=== PATIENT | female | born 1975 | race Asian ===

== ENCOUNTER 2018-04-15 12:08 | Outpatient (CLI) | payer BC ==
--- NOTE | 2018-04-15 20:41 | Ultrasound Report ---
Procedure Date: 04/15/2018 Accession Number: [id number] / [id number] Procedure: US - Carotid Doppler Complete CPT Code: FULL RESULT: EXAM: BILATERAL CAROTID AND VERTEBRAL ARTERY DUPLEX DOPPLER ULTRASOUND. EXAM DATE: 04/15/2018 01:29 PM CLINICAL HISTORY: Carotid atherosclerosis. COMPARISON: None. TECHNIQUE: Grayscale imaging, color Doppler, and duplex spectral Doppler were used to evaluate the carotid and vertebral arteries bilaterally. Static images were obtained. FINDINGS: No significant plaque is identified in the right or left common or internal carotid arteries. Normal antegrade flow is present in bilateral vertebral arteries. VELOCITIES (cm/sec): Right: RCCA Prox: PSV 105 cm/sec. RCCA Dist: PSV 99 cm/sec, EDV 39 cm/sec. RECA: PSV 85 cm/sec. R Bulb: PSV 91 cm/sec, EDV 35 cm/sec, ICA/CCA ratio 0.91. CISCO Prox: PSV 102 cm/sec, EDV 41 cm/sec, ICA/CCA ratio 1.03. CISCO Mid: PSV 104 cm/sec, EDV 51 cm/sec, ICA/CCA ratio 1.05. CISCO Dist: PSV 87 cm/sec, EDV 40 cm/sec, ICA/CCA ratio 0.87. RVA: PSV 55 cm/sec. RVA flow direction: Antegrade. Left: LCCA Prox: PSV 105 cm/sec. LCCA Dist: PSV 99 cm/sec, EDV 36 cm/sec. LECA: PSV 80 cm/sec. L Bulb: PSV 83 cm/sec, EDV 31 cm/sec, ICA/CCA ratio 0.83. LICA Prox: PSV 79 cm/sec, EDV 28 cm/sec, ICA/CCA ratio 0.79. LICA Mid: PSV 103 cm/sec, EDV 53 cm/sec, ICA/CCA ratio 1.04. LICA Dist: PSV 107 cm/sec, EDV 48 cm/sec, ICA/CCA ratio 1.08. LVA: PSV 53 cm/sec. LVA flow direction: Antegrade. ICA diameter stenosis: Right: <50% by velocity and <70% by NASCET criteria. Left: <50% by velocity and <70% by NASCET criteria. IMPRESSION: 1. No significant bilateral carotid artery plaquing. 2. In the right carotid artery there are no elevated carotid artery velocities to suggest hemodynamically significant stenosis. 3. In the left carotid artery there are no elevated carotid artery velocities to suggest hemodynamically significant stenosis. 4. Normal antegrade flow is present in bilateral vertebral arteries. General Recommendations: Stenosis =50% ICA - Follow-up ultrasound 6-12 months Stenosis <50% ICA - High Risk Patient with plaque - Follow-up ultrasound 1-2 years Normal Study but High Risk Patient - Follow-up ultrasound 3-5 years Management recommendations and diagnostic criteria are based on current IAC endorsed standards in Carotid Artery Stenosis: Grayscale and Doppler Ultrasound Diagnosis. Validated velocity measurements with angiographic measurements and velocity criteria are extrapolated from diameter data as defined by the Society of Radiologists in Ultrasound Consensus Conference Radiology 2003; 229;340-346. RADIA
== END 2018-04-15 12:09 | disposition home or self-care (01) ==
LOC: DI 12:08
PROVIDERS: ATTEND Nurse Practitioner Gerontology
DX: I65.29 Occlusion and stenosis of unspecified carotid artery (principal)
CPT/HCPCS: 93880

== ENCOUNTER 2019-06-11 08:00 | Outpatient (CLI) | payer SELFPAY ==
[2019-06-11 19:14] LABS: BILIRUBIN,URINE NEGATIVE (NEGATIVE); GLUCOSE, URINE (UA) 100 mg/dL (NEGATIVE); KETONES,URINE (UA) NEGATIVE (NEGATIVE); LEUKOCYTE ESTERASE, URINE SMALL (NEGATIVE); NITRITE,URINE POSITIVE (NEGATIVE); OCCULT BLOOD,URINE TRACE-INTA (NEGATIVE); PROTEIN,URINE 30 mg/dL (NEGATIVE); UROBILINOGEN,URINE 2 E.U./dL (NORMAL)
[2019-06-11 19:25] LABS: CLARITY,URINE HAZY (CLEAR)
[2019-06-11 19:40] LABS: BACTERIA,URINE Moderate /HPF (None Seen); SQUAMOUS EPITHELIAL CELL,UR FEW Squamous (<= Few)
== END 2019-06-11 23:59 | disposition home or self-care (01) ==
LOC: LAB.R 08:00
PROVIDERS: ATTEND Physician Assistant Medical
DX: N10 Acute pyelonephritis (principal)
CPT/HCPCS: 81001; 81003; 87077; 87086; 87181

== ENCOUNTER 2019-08-03 07:55 | Outpatient (CLI) | payer BC ==
--- NOTE | 2019-08-03 14:22 | Ultrasound Report ---
Reason: MULTIPLE THYROID NODULES Procedure Date: 08/03/2019 Accession Number: [id number] / [id number] Procedure: US - Head or Neck Soft Tissue CPT Code: FULL RESULT: EXAM: THYROID ULTRASOUND EXAM DATE: 08/03/2019 09:00 AM. CLINICAL HISTORY: Multiple thyroid nodules. COMPARISON: None. TECHNIQUE: Real time sonographic imaging of the thyroid was performed by the emergency department coordinator. Multiple communications representative static images were saved for review. FINDINGS: THYROID GLAND: Right Lobe: 5.7 x 1.7 x 1.9 cm, volume 9.6 cc. Normal background echotexture. Right Lobe Nodules: 1. Mixed cystic and solid mid to upper lobe 1.4 x 0.9 x 0.9 cm nodule. 2. Upper pole 0.2 x 0.2 x 0.2 cm hypoechoic nodule. Left Lobe: 5.8 x 1.4 x 1.7 cm, volume 7.2 cc. Normal background echotexture. Left Lobe Nodules: 1. Mid to upper lobe 0.4 x 0.3 x 0.3 cm hypoechoic nodule. 2. Mid lobe 0.7 x 0.4 x 0.5 cm hypoechoic nodule. Isthmus: 0.3 cm AP. Isthmic Nodules: None. LYMPH NODES: Single, bilateral nonenlarged benign-appearing lymph nodes demonstrated. OTHER: None. IMPRESSION: Bilateral thyroid nodules, as detailed above. Follow-up ultrasound recommended in 12-24 months, unless clinically indicated sooner. Management recommendations are based on 2015 [place] Thyroid Association Management Guidelines for Adult Patients with Thyroid Nodules and Differentiated Thyroid Cancer. RADIA
== END 2019-08-03 07:56 | disposition home or self-care (01) ==
LOC: DI 07:55
PROVIDERS: ATTEND Nurse Practitioner Gerontology
DX: E04.2 Nontoxic multinodular goiter (principal)
CPT/HCPCS: 76536

== ENCOUNTER 2019-08-03 07:58 | Outpatient (CLI) | payer BC ==
--- NOTE | 2019-08-03 10:48 | Mammography Report ---
Reason: SCREENING MAMMO Procedure Date: 08/03/2019 Accession Number: [id number] / [id number] Procedure: LONNY - Screening Mammo w/Shan CPT Code: FULL RESULT: EXAM: Screening Mammo w/Shan DATE: 08/03/2019 9:21 AM CLINICAL HISTORY: Screening encounter. TECHNIQUE: (B) - Bilateral CC and MLO views were obtained. COMPARISON: 04/28/2015. PARENCHYMAL PATTERN: (A) - The breast(s) demonstrate(s) scattered fibroglandular densities. FINDINGS: There are no suspicious masses, calcifications, or areas of distortion. IMPRESSION: Negative examination. BI-RADS category 1. RECOMMENDATION: (ANNUAL) - Recommend routine annual screening mammography. BI-RADS CATEGORY: (1) - Negative. STANDARD QUALIFYING STATEMENTS: 1. This examination was not reviewed with the aid of Computer-Aided Detection (CAD). 2. A negative or benign imaging report should not preclude biopsy if clinically suspicious findings are present. 3. Dense breasts may obscure an underlying neoplasm. 4. This examination was reviewed with the aid of 3D breast imaging (tomosynthesis).
== END 2019-08-03 07:59 | disposition home or self-care (01) ==
LOC: DI 07:58
DX: Z12.31 Encounter for screening mammogram for malignant neoplasm of breast (principal)
CPT/HCPCS: 77063; 77067

== ENCOUNTER 2019-11-23 13:40 | Outpatient (CLI) | payer BC | END 2019-11-23 23:59 | disposition home or self-care (01) | LOC: LAB.N 13:40 | PROVIDERS: ATTEND Nurse Practitioner Gerontology | DX: R30.0 Dysuria (principal) | CPT/HCPCS: 87077; 87086; 87181 ==

== ENCOUNTER 2020-02-27 20:21 | Emergency (ER) | payer BC ==
--- NOTE | 2020-02-27 21:02 | ED Physician Documentation ---
History of Present Illness - Stated complaint Stated Complaint: L LEG PAIN - Chief complaint Chief Complaint: Ext Problem - Additonal information Additional information: This is a 44-year-old female with a history of DVT age 16 provoked by oral contraceptives, presents with left calf pain. Pain is an ongoing about 1 week, in the absence of any known trauma to the leg. Patient states she has been more sedentary than usual being at home, no recent surgeries. She noticed some bruising along the posterior lower left calf today, and she Does not recall any trauma or straining event. She states that the pain in her calf is actually more superior in the lower leg, not in the region of the bruising. She denies any chest pain or shortness of breath. She is not on any anticoagulation. Review of Systems Constitutional: denies: Fever Cardiac: denies: Chest pain / pressure Respiratory: denies: Dyspnea Skin: reports: Other (Bruising over LLE) Musculoskeletal: reports: Extremity pain Neurologic: denies: Generalized weakness Endocrine: denies: Easy bruising / bleeding PD PAST MEDICAL HISTORY - Present Medications Home Medications: Ambulatory Orders Medication Instructions Recorded Confirmed Propranolol [Inderal] 40 mg PO BID 02/27/20 02/27/20 - Allergies Allergies/Adverse Reactions: Allergies Allergy/AdvReac Type Severity Reaction Status Date / Time No Known Drug Allergies Allergy Verified 02/27/20 20:28 - Social History Smoking Status: Never smoker PD ED PE NORMAL - Vitals Vital signs reviewed: Yes - General General: Alert and oriented X 3, No acute distress - HEENT HEENT: PERRL - Neck Neck: Supple, no meningeal sign - Cardiac Cardiac: RRR, No murmur - Respiratory Respiratory: Clear bilaterally - Abdomen Abdomen: Non distended - Derm Derm: Warm and dry - Extremities Extremities: Other (Legs are symmetric in size. Over the 7 cm x 3 cm area of ecchymosis, with slight ecchymosis on the lower ankle as well. There is no bony tenderness of the tibia, fibula, bones of the ankle or foot. Strong distal pulses 2+ in the PT and DP. Brisk capillary refill. Patient is able to flex and extend her calf with normal strength. There is no palpable cord. No erythema) - Neuro Neuro: Alert and oriented X 3 - Psych Psych: Normal mood, Normal affect Results - Vitals Vitals: Vital Signs - 24 hr 02/27/20 02/27/20 20:25 22:06 Temperature 36.6 C Heart Rate 78 80 Respiratory 16 18 Rate Blood Pressure 149/102 H 132/96 H O2 Saturation 99 96 Oxygen O2 Source Room air - Rads (name of study) DVT US LLE Radiology: Other (No signs of DVT) PD MEDICAL DECISION MAKING - ED course Complexity details: considered differential (DVT, strain, sprain, ecchymosis, contusion, hematoma, rhabdomyolysis) ED course: On examination patient has a localized area of ecchymosis over the left calf, she has good range of motion of her ankle, the limb is neurovascular intact, it is not diffusely swollen, is not erythematous. There are no signs of infection. She has had no other bruising or bleeding, I have a low suspicion for coagulopathy, she is not on a statin, and I do not see signs of any myopathy. She has intact tendons, no signs of Achilles rupture. She has had no obvious trauma to the leg, no bony tenderness to suggest fracture. An ultrasound of the leg shows no signs of DVT. I am unsure the exact cause of her bruising but I suspect muscle strain/contusion is likely. Given her gradual improvement over the last several days we will trial supportive care and if she is having continued symptoms she will follow-up with her primary care provider For further evaluation and potential repeat imaging, I did discuss that occasionally that initial DVT scans can be falsely negative. With any worsening or new symptoms she will return to the emergency department. Patient agrees with this plan and was discharged home in good condition Departure - Departure Disposition: 01 Home, Self Care Clinical Impression: Pain of left calf Condition: Good Instructions: ED RICE Follow-Up: SAHARA MACEDO ARNP [Primary Care Provider] - Comments: Your ultrasound not show signs of blood clot today. Given the bruising in your calf it is more likely that you had some strain or damage to the muscles or soft tissue of your leg that could have caused this. Please avoid straining the calf, rest and ice it, and you may take ibuprofen and Tylenol for discomfort. If you develop redness, swelling, or if your symptoms are not improving please follow- up with your primary care provider. If you are developing any chest pain or shortness of breath or other concerning symptoms return to the emergency department. Discharge Date/Time: 02/27/20 22:07
--- NOTE | 2020-02-27 21:52 | Ultrasound Report ---
Reason: LLE swelling, pain Procedure Date: 02/27/2020 Accession Number: [id number] / [id number] Procedure: US - Duplex Ext Veins Left CPT Code: Final Report FULL RESULT: EXAM: LEFT LOWER EXTREMITY VENOUS ULTRASOUND EXAM DATE: 02/27/2020 09:31 PM. CLINICAL HISTORY: LLE swelling, pain. COMPARISON: None. TECHNIQUE: Real-time sonographic vascular imaging was performed by the carpenter's helper through the lower extremity utilizing both color-flow and Doppler spectral analysis. Multiple cash application representative static images were saved for review. FINDINGS: Common Femoral Vein (CFV): Normal. CFV-GSV Junction: Normal. Profunda Femoral Vein (PFV): Normal. Femoral Vein (FV) Prox: Normal. Femoral Vein (FV) Mid: Normal. Femoral Vein (FV) Dist: Normal. Popliteal Vein: Normal. Posterior Tibial Veins: Normal. Peroneal Veins: Normal. Contralateral Side CFV: Normal. Other: None. IMPRESSION: No evidence for deep venous thrombosis in the left lower extremity. RADIA
[2020-02-27 22:07] VITALS: BP 132/96
== END 2020-02-27 22:07 | disposition home or self-care (01) ==
LOC: ED 20:21
DX: M79.662 Pain in left lower leg (principal); R58 Hemorrhage, not elsewhere classified
CPT/HCPCS: 99282; 99284

== ENCOUNTER 2021-07-18 08:00 | Emergency (ER) | payer BC ==
[2021-07-18] MEDS ORDERED: ONDANSETRON 4 MG/2 ML VIAL IVP STA ×2 (08:09→09:59)
[2021-07-18] MEDS ORDERED: KETOROLAC 30 MG/ML VIAL IVP STA (08:09)
[2021-07-18] MEDS ORDERED: HYDROmorphone 1 MG/ML CARPUJECT IVP STA ×2 (08:09→08:41)
[2021-07-18] MEDS ORDERED: SODIUM CHLORIDE 0.9% 1,000 ML IV STA (08:09)
--- NOTE | 2021-07-18 08:10 | ED Physician Documentation ---
PD HPI ABD PAIN - Stated complaint Stated Complaint: LT FLANK PX - History obtained from History obtained from: Patient - Additional information Additional information: 45-year-old woman with history of renal colic presents with sudden onset left flank pain starting just 15 minutes ago. Pain is severe and unrelenting since then. It does feel like prior episodes of renal colic. Review of Systems Ten Systems: 10 systems reviewed and negative Constitutional: reports: Reviewed and negative Ears: reports: Reviewed and negative Nose: reports: Reviewed and negative PD PAST MEDICAL HISTORY - Present Medications Home Medications: Ambulatory Orders Medication Instructions Recorded Confirmed Propranolol [Inderal] 40 mg PO BID 02/27/20 02/27/20 HYDROcod/ACETAM 5/325 [[place] 5/325] 1 - 2 tab PO Q6H PRN #15 tablet 07/18/21 Ondansetron Odt [Zofran] 4 mg TL Q6H PRN #10 tablet 07/18/21 - Allergies Allergies/Adverse Reactions: Allergies Allergy/AdvReac Type Severity Reaction Status Date / Time No Known Drug Allergies Allergy Verified 07/18/21 08:16 - Social History Smoking Status: Never smoker PD ED PE NORMAL - Vitals Vital signs reviewed: Yes - General General: Alert and oriented X 3, Other (She is screaming and writhing in pain, appears quite uncomfortable. Tearful.) - Abdomen Abdomen: Normal bowel sounds, Soft, Non tender - Back Back: No CVA TTP - Neuro Neuro: Alert and oriented X 3, Normal speech Results - Vitals Vitals: Vital Signs - 24 hr 07/18/21 07/18/21 08:06 09:49 Heart Rate 74 50 L Respiratory 22 16 Rate Blood Pressure 140/90 H 106/73 O2 Saturation 100 99 Oxygen O2 Source Room air - Labs Labs: Laboratory Tests 07/18/21 07/18/21 07/18/21 08:19 08:19 10:49 WBC 5.4 RBC 4.58 Hgb 13.7 Hct 41.3 MCV 90.2 MCH 29.9 MCHC 33.2 RDW 12.7 Plt Count 263 MPV 10.6 Neut # (Auto) 2.3 Lymph # (Auto) 2.5 [place] # (Auto) 0.5 Eos # (Auto) 0.1 Baso # (Auto) 0.0 Absolute Nucleated RBC 0.00 Nucleated RBC % 0.0 Sodium 142 Potassium 3.6 Chloride 106 Carbon Dioxide 25 Anion Gap 11.0 BUN 14 Creatinine 0.8 Estimated GFR (MDRD) 77 L Glucose 130 H Calcium 9.3 Total Bilirubin 1.0 AST 14 ALT 14 Alkaline Phosphatase 46 Total Protein 7.1 Albumin 4.3 Globulin 2.8 Albumin/Globulin Ratio 1.5 Lipase 25 Urine Color YELLOW Urine Clarity HAZY Urine pH 6.0 Ur Specific [place] >=1.030 H Urine Protein NEGATIVE Urine Glucose (UA) NEGATIVE Urine Ketones NEGATIVE Urine Occult Blood LARGE H Urine Nitrite NEGATIVE Urine Bilirubin NEGATIVE Urine Urobilinogen 0.2 (NORMAL) Ur Leukocyte Esterase NEGATIVE Urine RBC TNTC H Urine WBC 0-3 Ur Squamous Epith Cells MOD Squamous H Urine Bacteria Few Ur Microscopic Review INDICATED Urine Culture Comments NOT INDICATED PD MEDICAL DECISION MAKING - ED course ED course: 45-year-old woman with history of renal colic presents with sudden onset left flank pain and was found to have 4 mm left UVJ stone. Her pain was successfully controlled with divided doses of meds here but developed a lot of reactive nausea to the pain medication which took some time to clear. I am prescribing a short course of short-acting opioid pain medication for this patient. I have reviewed the patients SALES BRANCH MANAGER and no concerning findings were note d. I have discussed that the opioids are for short term therapy only, and will not be refilled from the ED. Departure - Departure Disposition: 01 Home, Self Care Clinical Impression: Renal colic Condition: Good Record reviewed to determine appropriate education?: Yes Instructions: ED Stone Renal W Colic Follow-Up: Vincent Goyal MD [Physician No Access] - Prescriptions: HYDROcod/ACETAM 5/325 [[place] 5/325] 1 - 2 tab PO Q6H PRN #15 tablet PRN Reason: Pain Ondansetron Odt [Zofran] 4 mg TL Q6H PRN #10 tablet PRN Reason: Nausea / Vomiting Comments: Prescription sent electronically to [facility] in [place]. As discussed, you have a left-sided kidney stone at the ureterovesical junction (almost in the bladder) measuring 4 mm. It is unlikely you will need to see a urologist in consultation but if pain lasts more than a few more days to a week, there is a number on this form that you can call to make an appointment. Return for new or worsening symptoms. I am prescribing a short course of narcotic pain medication for you. These are potentially dangerous and addictive medications that should be used carefully. These medications may constipate you. Take an ytop-aen-obiasin stool softener (docusate) twice daily with plenty of water while taking these medications. If you go 24 hours without a bowel movement, take [id number] miralax, per package instructions. Do not drink or drive while taking these medications. If you received narcotic or sedating medications while in the emergency department, do not drive for 24 hours. Store this medication in a safe, secure place and out of reach of children. It is a violation of federal law to give or sell this medication to another person or to use in a manner other than prescribed. The ED will not refill narcotic prescriptions, including prescriptions lost or stolen. To dispose of unwanted medications: 1. [facility] at [address] [facility] in [place] has a medication drop box. They accept prescription medications (in pill form) Tuesday through Tuesday 9:00 a.m. to 5:00 p.m. 2. The [facility] accepts prescription medications (in pill form only) for disposal year round. Call for more information. 3. Contact the [facility] for the next [facility] sponsored prescription drug collection event. , [phone], or [phone]; Note that many narcotic pain relievers also contain Tylenol/acetaminophen. Please ensure that your total dose of acetaminophen from all sources does not exceed 3 g (3000 mg) per day.
[2021-07-18 08:41] LABS: BASOPHILS % (AUTO) 0.7 %; EOSINOPHILS # (AUTO) 0.1 10^3/uL (0.0-0.7); EOSINOPHILS % (AUTO) 0.9 %; HCT - HEMATOCRIT 41.3 % (37.0-47.0); HGB - HEMOGLOBIN 13.7 g/dL (12.0-16.0); LYMPHOCYTES # (AUTO) 2.5 10^3/uL (1.5-3.5); LYMPHOCYTES % (AUTO) 46.8 %; MEAN CORPUSCULAR HEMOGLOBIN 29.9 pg (27.0-31.0); MEAN CORPUSCULAR HGB CONC 33.2 g/dL (32.0-36.0); MEAN CORPUSCULAR VOLUME 90.2 fL (81.0-99.0); MEAN PLATELET VOLUME 10.6 fL (7.9-10.8); MONOCYTES # (AUTO) 0.5 10^3/uL (0.0-1.0); MONOCYTES % (AUTO) 9.2 %; NEUTROPHILS # (AUTO) 2.3 10^3/uL (1.5-6.6); NEUTROPHILS % (AUTO) 42.2 %; PLT - PLATELET COUNT 263 10^3/uL (130-450); RED BLOOD COUNT 4.58 10^6/uL (4.20-5.40); RED CELL DISTRIBUTION WIDTH 12.7 % (12.0-15.0); WHITE BLOOD COUNT 5.4 x10^3/uL (4.8-10.8)
[2021-07-18 08:56] LABS: ALBUMIN 4.3 g/dL (3.2-5.5); ALBUMIN/GLOBULIN RATIO 1.5 (1.0-2.2); CALCIUM 9.3 mg/dL (8.5-10.3); CREATININE 0.8 mg/dL (0.4-1.0); POTASSIUM 3.6 mmol/L (3.5-5.0); TOTAL PROTEIN 7.1 g/dL (6.7-8.2)
[2021-07-18] MEDS ORDERED: METOCLOPRAMIDE 10 MG/2 ML VIAL IVP STA (09:09)
--- NOTE | 2021-07-18 10:19 | CT Report ---
PROCEDURE: Abdomen/Pelvis WO INDICATIONS: L flank pain TECHNIQUE: Noncontrast 5 mm thick sections acquired from the diaphragms to the symphysis. 5 mm coronal and sagi ttal reformats were then performed. For radiation dose reduction, the following was used: automated exposure control, adjustment of mA and/or kV according to patient size. COMPARISON: None. FINDINGS: Image quality: Excellent. ABDOMEN: Lung bases: Lung bases are clear. Heart size is normal. Mild right basilar dependent atelectasis. Solid organs: Liver and spleen are normal in size. Gallbladder unremarkable. Pancreas is normal in contours. No adrenal nodules. There is a 4 mm calculus noted at the left ureterovesical junction resulting in mild left hydronephro sis and hydroureter. No additional calculi present. Right renal collecting system unremarkable. Peritoneum and bowel: Unenhanced bowel loops demonstrate normal wall thickness and caliber. No free fluid or air. Normal appendix identified Nodes and vessels: No retroperitoneal or mesenteric adenopathy by size criteria. Aorta and inferior vena cava are normal in caliber. Miscellaneous: No ventral hernias. PELVIS: Genitourinary: Bladder wall thickness is normal. Miscellaneous: No inguinal hernias or adenopathy. Bones: No suspicious bony lesions. No vertebral body compression fractures. IMPRESSION: Mild left obstructive uropathy results from a 4 mm distal left ureteral vesicle junction calculus Reviewed by: Ashwin Carrillo MD on 07/18/2021 9:18 AM ALYSSIA Approved by: Ashwin Carrillo MD on 07/18/2021 9:18 AM AKDT Station ID: [id number]
[2021-07-18 11:03] LABS: BILIRUBIN,URINE NEGATIVE (NEGATIVE); GLUCOSE, URINE (UA) NEGATIVE (NEGATIVE); KETONES,URINE (UA) NEGATIVE (NEGATIVE); LEUKOCYTE ESTERASE, URINE NEGATIVE (NEGATIVE); NITRITE,URINE NEGATIVE (NEGATIVE); OCCULT BLOOD,URINE LARGE (NEGATIVE); PROTEIN,URINE NEGATIVE (NEGATIVE); UROBILINOGEN,URINE 0.2 (NORMAL) E.U./dL (NORMAL)
[2021-07-18 11:06] LABS: CLARITY,URINE HAZY (CLEAR)
[2021-07-18 11:15] LABS: BACTERIA,URINE Few /HPF (None Seen); RBC,URINE TNTC /HPF (0-5); SQUAMOUS EPITHELIAL CELL,UR MOD Squamous (<= Few); WBC,URINE 0-3 /HPF (0-5)
[2021-07-18 11:19] VITALS: BP 110/60
== END 2021-07-18 11:34 | disposition home or self-care (01) ==
LOC: ED 08:00
DX: N13.2 Hydronephrosis with renal and ureteral calculous obstruction (principal)
CPT/HCPCS: 36415; 74176; 80053; 81001; 83690; 85025; 96374; 96375; 96376; 99283; 99285; J1170; J2765; 81003; 87086

== ENCOUNTER → 2021-07-21 | Outpatient (CLI) | payer BC | LOC: LAB.N 08:00 | PROVIDERS: ATTEND Nurse Practitioner | DX: R30.0 Dysuria (principal) | CPT/HCPCS: 87086 ==

== ENCOUNTER 2022-05-16 08:50 | Outpatient (CLI) | payer OTHER ==
--- NOTE | 2022-05-16 10:40 | Ultrasound Report ---
PROCEDURE: Head or Neck Soft Tissue INDICATIONS: MULTIPLE THYROID NODULES TECHNIQUE: Real-time scanning was performed of the thyroid gland, with image documentation. COMPARISON: 08/03/2019 FINDINGS: Right: Thyroid lobe measures 5.7 x 1.7 x 1.6 cm, and is homogeneous in echotexture. Left: Thyroid lobe measures 5.2 x 1.0 x 1.4 cm, and is homogenous in echotexture. Isthmus: 2 mm thick. Nodule number: 1 Location: Right middle pole Size: 0.6 x 0.5 x 0.5 cm, previously 1.4 x 0.9 x 0.9 cm. Composition: Solid Echogenicity: Hypoechoic Shape: wider than tall. Margins: Ill-defined Echogenic foci: None Total points: 4 ACR TI-RADS category: 4, moderately suspicious Nodule number: 2 Location: Left middle pole Size: 0.7 x 0.5 x 0.6 cm, previously 0.7 x 0.4 x 0.5 cm. Composition: Solid Echogenicity: Hypoechoic Shape: wider than tall. Margins: Lobulated Echogenic foci: None Total points: 6 ACR TI-RADS category: 4, moderately suspicious Nodule number: 3 Location: Left middle pole Size: 0.5 x 0.4 x 0.4 cm, previously 0.4 x 0.3 x 0.3 cm. Composition: Solid Echogenicity: Hypoechoic Shape: wider than tall. Margins: Lobulated Echogenic foci: None Total points: 6 ACR TI-RADS category: 4, moderately suspicious IMPRESSION: As before, there are multiple thyroid nodules present. Based on the current study, given the size and imaging characteristics of these 3 nodules, there is no current indication for sampling of these nodules. Additionally, no current nodule is of sufficient size to require scheduled follow- up. ACR TI-RADS definitions and recommendations: TI-RADS 1 (benign): 0 points. FNA not needed. TI-RADS 2 (not suspicious): 2 points. FNA not needed. TI-RADS 3 (mildly suspicious): 3 points. "FNA if 2.5 cm or larger, follow up if 1.5 cm or larger (at 1, 3, and 5 years). TI-RADS 4 (moderately suspicious): 4-6 points. "FNA if 1.5 cm or larger, follow up if 1 cm or larger (at 1, 2, 3, and 5 years). TI-RADS 5 (highly suspicious): 7 points or more. "FNA if 1 cm or larger, follow up if 0.5 cm or larger (every year for 5 years). Reviewed by: Morgan Austin MD on 05/16/2022 9:38 AM ALYSSIA Approved by: Morgan Austin MD on 05/16/2022 9:38 AM ALYSSIA Station ID: [id number]
== END 2022-05-16 08:51 | disposition home or self-care (01) ==
LOC: DI 08:50
PROVIDERS: ATTEND Nurse Practitioner
DX: E04.2 Nontoxic multinodular goiter (principal)

== ENCOUNTER 2022-05-19 14:21 | Outpatient (CLI) | payer OTHER | END 2022-05-19 14:22 | disposition home or self-care (01) | LOC: MAC.MOP 14:21 | PROVIDERS: ATTEND Nurse Practitioner | DX: R00.2 Palpitations (principal) | CPT/HCPCS: 93246 ==